=== PATIENT | female | born 1970 | race Caucasian/White ===

== ENCOUNTER 2024-12-11 19:39 | Emergency (ER) | payer BC, SELFPAY ==
[2024-12-11 19:44] VITALS: BP 169/95
[2024-12-11] MEDS: ZOFRAN ODT (ORALLY DISINTEGRATING) 4 MG PO (19:56)
[2024-12-11 20:51] LABS: % Basophils 0.5 % (0-2); % Immature Granulocytes 0.7 % (0-0.5); % Lymphocytes 21.9 % (20.5-51.1); % Monocytes 8.8 % (1.7-9.3); % Neutrophils 67.1 % (42.2-75.2); Absolute Basophils 0.1 10^3/uL (0-0.2); Absolute Eosinophils 0.1 10^3/uL (0-0.7); Absolute Immature Granulocytes 0.1 10^3/uL (0-0.05); Absolute Lymphocytes 2.1 10^3/uL (1.2-3.4); Absolute Monocytes 0.8 10^3/uL (0.1-0.6); Absolute Neutrophils 6.3 10^3/uL (1.4-6.5); Hematocrit 39.8 % (37.0-47.0); Hemoglobin 13.4 g/dL (12.0-16.0); Mean Corp Hgb Conc. 33.7 g/dL (33.0-37.0); Mean Corpuscular Hgb 26.1 pg (27.0-31.0); Mean Corpuscular Volume 77.4 fL (81.0-99.0); Mean Platelet Volume 9.8 fL (7.4-10.4); Nucleated Red Blood Cells % 0 %; Platelet Count 347 10^3/uL (130-400); Red Blood Cell Count 5.14 10^6/uL (4.20-5.40); Red Cell Dist. Width 13.2 % (11.5-14.5); White Blood Cell Count 9.3 10^3/uL (4.8-10.8)
[2024-12-11 21:02] LABS: ALT (SGPT) 69 U/L (0-35); AST (SGOT) 30 U/L (14-36); Albumin 4.2 g/dl (3.5-5.0); Alkaline Phosphatase 93 U/L (38-126); Blood Urea Nitrogen 19 mg/dl (7-17); Calcium 10.2 mg/dl (8.4-10.2); Carbon Dioxide 22 mmol/L (22-30); Chloride 103 mmol/L (98-107); Glucose 120 mg/dl (70-99); Lipase 119 U/L (23-300); Potassium 4.2 mmol/L (3.5-5.1); Sodium 137 mmol/L (135-145); Total Bilirubin 0.6 mg/dl (0.2-1.3); Total Protein 7.5 g/dl (6.3-8.2); eGFR > 60.00
--- NOTE | 2024-12-11 21:05 | ED.GENMED ---
History of Present Illness
General
Chief Complaint: Medication Reaction
Source: patient
Exam Limitations: none
Time Seen by Provider: 12/11/24 20:48
History of Present Illness
History of Present Illness:
See MDM
Past History
Past History
ED Past Medical History: None
ED Past Surgical History: None
Social History
Tobacco: Non-smoker
Alcohol: None
Phy Exam
Physical Exam
Physical Exam:
See MDM
Course
Orders/Labs/Results
Orders:
Orders
12/11/24 19:54
Ondansetron Orally Disint [Zofran Odt (Orally Disintegrating)] 4 mg .ROUTE .STK-MED ONE
12/11/24 19:55
Ondansetron Orally Disint [Zofran Odt (Orally Disintegrating)] 4 mg PO NOW STA
12/11/24 20:37
IV Insert/Care/Rem.- Treatment PRN
12/11/24 20:39
Complete Blood Count/With Diff Urgent
Comprehensive Metabolic Panel Urgent
Lipase Urgent
12/11/24 20:57
Dexamethasone Sod Phosphate [Decadron] 10 mg IV NOW STA
12/11/24 22:02
Ketorolac [Toradol] 30 mg IV NOW STA
Lorazepam [Ativan] 1 mg IV NOW STA
Abnormal Lab Results
12/11/24
20:39
MCV 77.4 L fL
(81.0-99.0)
MCH 26.1 L pg
(27.0-31.0)
Abs Immat Gran (auto) 0.1 H 10^3/uL
(0-0.05)
Absolute Monos (auto) 0.8 H 10^3/uL
(0.1-0.6)
Immature Gran % 0.7 H %
(0-0.5)
BUN 19 H mg/dl
(7-17)
Glucose 120 H mg/dl
(70-99)
ALT 69 H U/L
(0-35)
12/11/24 20:39
12/11/24 20:39
Vital Signs
Initial and Last Documented VS:
Initial Vital Signs
Temp Pulse Resp BP Pulse Ox
97.9 F 107 28 169/95 99
12/11/24 19:44 12/11/24 19:44 12/11/24 19:44 12/11/24 19:44 12/11/24 19:44
Last Documented Vital Signs
Temp Pulse Resp BP Pulse Ox
97.9 F 107 28 169/95 99
12/11/24 19:44 12/11/24 19:44 12/11/24 19:44 12/11/24 19:44 12/11/24 19:44
MDM/Problems Addressed
Differential Diagnosis Includes:
HPI and MDM Narrative:
54-year-old female presenting for evaluation of nausea, vomiting, abdominal pain. Patient has been dealing with strep throat symptoms for about a month. She was on amoxicillin which helped somewhat. She went to urgent care and was placed on
clarithromycin. After 3 doses, she has had uncontrolled nausea and vomiting. Patient still has enlarged tonsils but states they strep throat test was negative. On exam, she does have point tenderness to the epigastric region but no other
significant this to necessitate further imaging. Will give IV fluids and dose of Decadron to help with her pharyngitis
Physical exam
General: Well appearing and non-toxic
HEENT: protecting airway. Posterior pharynx erythematous and edematous. Uvula midline. Dry mucous membrane
Neck: supple
CV: No evidence of cyanosis
Resp: No accessory muscle use
Abd: Non-distended. Mild epigastric
Extremities: No deformities
Neuro: alert
Psych: Normal affect
Skin: Intact
Problems Addressed including Acute and Chronic Conditions affecting care:
1. Pharyngitis
Acuity: acute
Prognosis: stable
Details: I am hesitant to restart antibiotics given her current state. Will give dose of steroid
2. Abdominal pain
Acuity: acute
Prognosis: stable
Details: Likely related to intractable nausea and vomiting. She is feeling better after Zofran. Will obtain basic blood work
Updates
On reevaluation, patient feeling much better and feels comfortable in home. We discussed talking to her primary care doctor about whether or not to restart
Differential Diagnosis (but not limited to): Gastroenteritis, adverse medication reaction, pancreatitis
Testing considered: Abdominal ultrasound
Drug therapy (if applicable): OTC meds, please see d/c instruction regarding Rx drugs
Amount and/or Complexity of Data Reviewed
Clinical info obtained from: Patient
External data reviewed: N/A
Labs I independently reviewed (but not limited to): Mild LFT elevation but patient states this is somewhat chronic
Radiology: N/A
Pulse Ox: not hypoxic
EKG independently reviewed: N/A
[employer] Professional: N/A
Critical Care: N/A
Risk of Complication:
Social Determinants of health: Good social support
Discussed with other providers: N/A
Escalation of Care includes Admit/Obs: After being observed in the Emergency Department, pt stable for discharge.
Occasional wrong word or 'sound a like' substitutions may have occurred due to the inherent limitations of voice recognition software. Read the chart carefully and recognize, using context, where substitutions have occurred.
*Critical Care Note
Total Time (30-74mins, 75-104mins- exclusive of procedures): Not Applicable
ED Attending Note
-
Portions of this chart may have been created with voice recognition software.� Occasional wrong word or��sound alike� substitutions may have occurred due to the inherent limitations of voice recognition software.
Discharge Plan
Departure
Patient Disposition: Home (Routine Discharge)
Date of Disposition: 12/11/24
Time of Disposition: 22:05
Patient with high blood pressure during this ER visit?: Yes
Discharge Problem:
Pharyngitis, Adverse effects of medication
Instructions: BLOOD PRESSURE
Prescriptions:
New
prednisone 20 mg tablet
40 mg PO DAILY Qty: 10 0RF
ondansetron 4 mg Tablet,Disintegrating
4 mg PO BIDPRN PRN (Reason: nausea/vomiting) Qty: 10 0RF
Referrals:
Kamilla Barajas CRNP [Family Provider] -
Activity Restrictions/Additional Instructions:
Please return for any worsening symptoms.
You may return at any time if you have further concerns.
Please follow up with your doctor at the first available appointment, preferably this week. Please discuss your symptoms and whether or not to restart antibiotics.
Thank you for choosing [facility].
Interventions
Interventions:
*Risk Screen - Suicide Last Done: 12/11/24 19:44
*General Assessment Last Done: 12/11/24 19:44
*Neglect/Abuse Screening Last Done: 12/11/24 19:44
ED- Fall Risk Assessment Last Done: 12/11/24 19:44
*ED COVID-19 Vaccine History Last Done: 12/11/24 19:44
ED-Skin Assessment Last Done: 12/11/24 21:37
ED- Pulmonary Assessment Last Done: 12/11/24 21:35
ED-EENT Assessment Last Done: 12/11/24 21:35
Discharge Date and Time
Print Language: CHINESE
[2024-12-11] MEDS: DECADRON 10 MG IV (21:18)
[2024-12-11] MEDS: ATIVAN 1 MG IV (22:19)
[2024-12-11] MEDS: TORADOL 30 MG IV (22:19)
[2024-12-11 22:20] VITALS: BP 146/86
== END 2024-12-11 22:41 | disposition home or self-care (01) ==
LOC: EMR 19:39
PROVIDERS: EMERGENCY PHYSICIAN Student in an Organized Health Care Education/Training Program; FAMILY PHYSICIAN Nurse Practitioner
DX: R11.2 Nausea with vomiting, unspecified (principal); R10.9 Unspecified abdominal pain; T36.3X5A Adverse effect of macrolides, initial encounter; J02.9 Acute pharyngitis, unspecified; R03.0 Elevated blood-pressure reading, without diagnosis of hypertension; Z88.1 Allergy status to other antibiotic agents
CPT/HCPCS: 99284; 96374; 96375 ×2; 80053; 83690; 85025